=== PATIENT | female | born 1980 | race Caucasian/White ===

== ENCOUNTER 2016-11-05 07:34 | Inpatient (IN) | payer BC ==
[2016-11-05 09:05] LABS: Hematocrit 38 % (35-47); Mean Corpuscular HGB Conc 34 g/dl (31-36); Mean Corpuscular Hemoglobin 30 pg (27-31); Mean Corpuscular Volume 90 fL (80-97); Mean Platelet Volume 8 um3 (7.4-10.4); Red Blood Count 4.28 10^6/ul (4.0-5.4); Red Cell Distribution Width 13 % (10.5-15); White Blood Count 9.2 10^3/ul (3.5-10.8)
[2016-11-05] MEDS ORDERED: Oxytocin in LR* 20 UNITS/1,000 ML BAG IVPB SCH (12:00)
[2016-11-05] MEDS ORDERED: OBEPIDURAL* 250 ML ONE (17:06)
[2016-11-06] MEDS ORDERED: Glycerin ADULT SUPP PR PRN (02:47)
[2016-11-06] MEDS ORDERED: Acetaminophen TAB* 325 MG PO PRN (02:47)
[2016-11-06] MEDS ORDERED: Ammonia Inhalant* 1 EA AMP ONE (07:20)
[2016-11-06] MEDS: Sertraline* 50 MG TAB PO SCH (07:50)
[2016-11-06] MEDS: Docusate CAP* 100 MG PO SCH ×3 (07:50→20:30)
[2016-11-06] MEDS: Witch Hazel PAD* JAR TOPICAL PRN (07:51)
[2016-11-06] MEDS: Dibucaine 1% 28.35 GM TUBE PR PRN (07:51)
[2016-11-06] MEDS ORDERED: Simethicone TAB* 80 MG TAB.CHEW PO SCH (08:30)
[2016-11-06] MEDS: Ibuprofen TAB* 600 MG PO PRN ×2 (14:46→20:30)
[2016-11-06] MEDS ORDERED: RHO D Immune Globulin (HUMAN)* 300 MCG = 1,500 I.U. INJ IM ONE (18:42)
[2016-11-07] MEDS: Ibuprofen TAB* 600 MG PO PRN ×4 (03:56→22:47)
[2016-11-07 07:13] LABS: Hematocrit 23 % (35-47); Hemoglobin 7.8 g/dl (12.0-16.0); Mean Corpuscular HGB Conc 34 g/dl (31-36); Mean Corpuscular Hemoglobin 30 pg (27-31); Mean Corpuscular Volume 89 fL (80-97); Mean Platelet Volume 8 um3 (7.4-10.4); Red Blood Count 2.61 10^6/ul (4.0-5.4); Red Cell Distribution Width 13 % (10.5-15); White Blood Count 14.8 10^3/ul (3.5-10.8)
[2016-11-07] MEDS: Ferrous Gluconate TAB* 324 MG TAB PO SCH ×2 (08:55→20:54)
[2016-11-07] MEDS: Docusate CAP* 100 MG PO SCH ×3 (08:59→20:55)
[2016-11-07] MEDS: Sertraline* 50 MG TAB PO SCH (09:01)
[2016-11-07] MEDS: Witch Hazel PAD* JAR TOPICAL PRN (13:41)
[2016-11-07] MEDS: Dibucaine 1% 28.35 GM TUBE PR PRN (13:41)
--- NOTE | 2016-11-07 14:09 | PTEDU ---
Patient Name: MARIN HURTADO PROSPERMARIN HENLEY selected video: Never Ever Shake a Baby to view on 11/07/2016 at 2:07:58 PM from [id number]
[2016-11-08] MEDS: Ibuprofen TAB* 600 MG PO PRN ×2 (04:34→15:04)
[2016-11-08 07:50] VITALS: BP 130/82
[2016-11-08] MEDS: Ferrous Gluconate TAB* 324 MG TAB PO SCH (08:35)
[2016-11-08] MEDS: Docusate CAP* 100 MG PO SCH ×2 (08:38→15:04)
== END 2016-11-08 16:00 | disposition home or self-care (01) | DRG 560 ==
LOC: MCHOBOUT 07:34 → MCHOB 08:32
PROVIDERS: ADMIT Obstetrics & Gynecology; ATTEND Obstetrics & Gynecology
PROC: 10E0XZZ Delivery of Products of Conception, External Approach (ICD-10-PCS; principal; 2016-11-06)
PROC: 3E033VJ Introduction of Other Hormone into Peripheral Vein, Percutaneous Approach (ICD-10-PCS; 2016-11-06)
PROC: 10907ZC Drainage of Amniotic Fluid, Therapeutic from Products of Conception, Via Natural or Artificial Opening (ICD-10-PCS; 2016-11-06)
PROC: 0KQM0ZZ Repair Perineum Muscle, Open Approach (ICD-10-PCS; 2016-11-06)
DX: O40.3XX0 Polyhydramnios, third trimester, not applicable or unspecified (principal); D68.51 Activated protein C resistance; O99.12 Other diseases of the blood and blood-forming organs and certain disorders involving the immune mechanism complicating childbirth; O70.1 Second degree perineal laceration during delivery; O26.893 Other specified pregnancy related conditions, third trimester; J45.909 Unspecified asthma, uncomplicated; O90.81 Anemia of the puerperium; D64.9 Anemia, unspecified; Z67.91 Unspecified blood type, Rh negative; Z3A.37 37 weeks gestation of pregnancy; Z37.0 Single live birth
CPT/HCPCS: 36415; 85025; 85461; 86850; 86870; 86880; 86900; 86901; A9270-GY; J2790

== ENCOUNTER 2019-05-07 11:54 | Observation (INO) | payer BC, OTHER ==
[2019-05-07 13:17] LABS: INR 1.03 (0.82-1.09)
[2019-05-07 13:20] LABS: ABS Lymphocytes 1.7 10^3/ul (1.0-4.8); ABS Monocytes 0.4 10^3/ul (0-0.8); ABS Neutrophils 5.9 10^3/ul (1.5-7.7); Eosinophil % 0.6 %; Hematocrit 40 % (35-47); Hemoglobin 13.6 g/dL (12.0-16.0); Lymphocyte % 21.4 %; Mean Corpuscular HGB Conc 34 g/dL (31-36); Mean Corpuscular Hemoglobin 30 pg (27-31); Mean Corpuscular Volume 86 fL (80-97); Mean Platelet Volume 7.2 fL (7.4-10.4); Nucleated Red Blood Cells % 0.1; Platelet Count 218 10^3/uL (150-450); Red Blood Count 4.61 10^6 /uL (3.70-4.87); Red Cell Distribution Width 13 % (10-15); White Blood Count 8.2 10^3/uL (3.5-10.8)
[2019-05-07 13:29] LABS: Albumin/Globulin Ratio 1.1 (1-3); BUN/Creatinine Ratio 12.4 (8-20); C Reactive Protein 76.95 mg/L (<8.01); Calcium 8.8 mg/dL (8.6-10.3); EGFR Non-African American 70.2 (>60); Globulin 3.7 g/dL (2-4); Total Bilirubin 0.3 mg/dL (0.2-1.0); Total Protein 7.7 g/dL (6.4-8.9)
[2019-05-07] MEDS ORDERED: Iohexol 350* (CONTRAST) 500 ML MDV IV ONE (14:17)
[2019-05-07] MEDS ORDERED: NS 0.9% 1000 ML** 1,000 ML IV ONE (15:14)
--- NOTE | 2019-05-07 15:52 | ED ---
Lower Extremity - HPI Summary HPI Summary: Patient is a 39-year-old female presenting to the ED with left lower extremity edema - History of Current Complaint Chief Complaint: EDExtremityLower Stated Complaint: POSS DVT LT LEG PER PT Time Seen by Provider: 05/07/19 12:25 Pain Intensity: 4 - Allergies/Home Medications Allergies/Adverse Reactions: Allergies Allergy/AdvReac Type Severity Reaction Status Date / Time No Known Allergies Allergy Verified 05/07/19 12:02 PMH/Surg Hx/FS Hx/Imm Hx Endocrine/Hematology History: Denies: Hx Diabetes Cardiovascular History: Denies: Hx Hypertension Respiratory History: Reports: Hx Asthma - exercised induced History: Denies: Hx Renal Disease Psychiatric History: Reports: Hx Depression - takes zoloft Infectious Disease History: No Infectious Disease History: Denies: Traveled Outside the [place] in Last 30 Days - Social History Alcohol Use: None Substance Use Type: Reports: None Smoking Status (MU): Never Smoked Tobacco Physical Exam Vital Signs On Initial Exam: Initial Vitals Temp Pulse Resp BP Pulse Ox 98.1 F 121 19 150/83 98 05/07/19 12:00 05/07/19 12:00 05/07/19 12:00 05/07/19 12:00 05/07/19 12:00 Diagnostics - Vital Signs Vital Signs Temp Pulse Resp BP Pulse Ox 05/07/19 13:32 132/90 05/07/19 13:06 121/90 05/07/19 13:05 122/87 05/07/19 13:02 129/80 05/07/19 12:32 150/95 05/07/19 12:00 98.1 F 121 19 150/83 98 - Laboratory Lab Results: Lab Results 05/07/19 05/07/19 05/07/19 Range/Units 12:50 12:50 12:52 WBC 8.2 (3.5-10.8) 10^3/uL RBC 4.61 (3.70-4.87) 10^6 /uL Hgb 13.6 (12.0-16.0) g/dL Hct 40 (35-47) % MCV 86 (80-97) fL MCH 30 (27-31) pg MCHC 34 (31-36) g/dL RDW 13 (10-15) % Plt Count 218 (150-450) 10^3/uL MPV 7.2 L (7.4-10.4) fL Neut % (Auto) 72.9 % Lymph % (Auto) 21.4 % Mora % (Auto) 4.8 % Eos % (Auto) 0.6 % Baso % (Auto) 0.3 % Absolute Neuts (auto) 5.9 (1.5-7.7) 10^3/ul Absolute Lymphs (auto) 1.7 (1.0-4.8) 10^3/ul Absolute Monos (auto) 0.4 (0-0.8) 10^3/ul Absolute Eos (auto) 0.0 (0-0.6) 10^3/ul Absolute Basos (auto) 0.0 (0-0.2) 10^3/ul Absolute Nucleated RBC 0.0 10^3/ul Nucleated RBC % 0.1 INR (Anticoag Therapy) 1.03 (0.82-1.09) Sodium 133 L (135-145) mmol/L Potassium 4.0 (3.5-5.0) mmol/L Chloride 103 (101-111) mmol/L Carbon Dioxide 23 (22-32) mmol/L Anion Gap 7 (2-11) mmol/L BUN 11 (6-24) mg/dL Creatinine 0.89 (0.51-0.95) mg/dL Est GFR ( Amer) 85.0 (>60) Est GFR (Non-Af Amer) 70.2 (>60) BUN/Creatinine Ratio 12.4 (8-20) Glucose 168 H (70-100) mg/dL Calcium 8.8 (8.6-10.3) mg/dL Total Bilirubin 0.30 (0.2-1.0) mg/dL AST 14 (13-39) U/L ALT 8 (7-52) U/L Alkaline Phosphatase 60 (34-104) U/L C-Reactive Protein 76.95 H (<8.01) mg/L Total Protein 7.7 (6.4-8.9) g/dL Albumin 4.0 (3.2-5.2) g/dL Globulin 3.7 (2-4) g/dL Albumin/Globulin Ratio 1.1 (1-3) Result Diagrams: 05/07/19 12:50 05/07/19 12:50 Lab Statement: Any lab studies that have been ordered have been reviewed, and results considered in the medical decision making process. Discharge - Discharge Plan Referrals: Joie Taylor [Primary Care Provider] -
[2019-05-07] MEDS ORDERED: traMADol TAB* 50 MG PO ONE (15:56)
[2019-05-07] MEDS ORDERED: Ondansetron INJ* 2 MG/ML VIAL IV PRN (16:59)
[2019-05-07] MEDS ORDERED: Albuterol 2.5 MG/3 ML NEB.SOL* (0.083%) INH PRN (17:03)
[2019-05-07] MEDS ORDERED: Rivaroxaban TAB(*) 15 MG PO ONE (18:00)
[2019-05-07] MEDS: Acetaminophen TAB* 325 MG PO PRN (19:55)
[2019-05-07] MEDS ORDERED: Rivaroxaban TAB(*) 15 MG PO SCH (21:00)
[2019-05-07] MEDS: lamoTRIgine TAB(*) 25 MG PO SCH (21:43)
[2019-05-07] MEDS ORDERED: oxyCODONE/Acetamin 5/325 MG* TAB PO PRN (22:58)
--- NOTE | 2019-05-07 23:13 | HP ---
CC: GEE Park * ADMISSION HISTORY AND PHYSICAL: DATE OF ADMISSION: 05/07/19 PRIMARY CARE PROVIDER: GEE Park MY ATTENDING WHILE IN THE HOSPITAL: Dr. Naga Huang.* (DICTATED BY GABY REYNA) CHIEF COMPLAINT: Pain and swelling in left lower extremity x2 days. HISTORY OF PRESENT ILLNESS: Ms. Mary is a 39-year-old female with past medical history significant for bipolar disorder, migraines without aura, asthma , and polycystic ovarian syndrome, who presents to the emergency department after 2 days ago, she had sudden onset pain, swelling, and redness in her left lower extremity with associated cold sweats and nausea, which has been getting worse over the past 2 days. The patient has had 2 similar episodes in the past month. The first one was diagnosed as an ankle sprain, but had no obvious trauma related to it. That was associated with shortness of breath for which she went for no medical care. She then had another episode 2 weeks ago with pain in her leg that went down starting approximately nursing home down her thigh, went down the inside of her leg, and then back up the other side of her leg. None of these were associated with any numbness or tingling in her left lower extremity, no pallor, no bruising. The patient has had no recent trauma. No recent immobilization. No recent changes in her medications. The patient is on control pills and has been for 2 years. The patient's mother has had numerous blood clots and has factor V Leiden. The patient's sister has factor V Leiden, but has never had a blood clot from it. The patient has never been tested herself. The patient has no chest pain, no shortness of breath, no dizziness. The patient has no more fevers or chills. The patient denies any bleeding. The patient has never had an episode like this before in her life. The patient has had no other recent life changes. In the emergency department, the patient was found to have large occlusive DVTs of the left lower extremity and small segmental pulmonary emboli. Due to concern for DVT and PE, we were asked to evaluate the patient for admission to the hospital. PAST MEDICAL HISTORY: Bipolar disorder, migraines without aura, polycystic ovarian syndrome, and asthma. PAST SURGICAL HISTORY: None. MEDICATIONS: 1. Lamictal 150 mg p.o. b.i.d. 2. Abilify 5 mg p.o. daily. 3. control pills, Low Estrogen. 4. Spironolactone 25 mg p.o. daily. 5. Ventolin inhaler 1 puff inhalation q.4 hours as needed. ALLERGIES: No known drug allergies. FAMILY HISTORY: The patient's mother has factor V Leiden, blood clots, anorexia , osteoporosis, and arrhythmia. The patient's father is healthy. The patient' s sister has factor V Leiden. Never had blood clots, but does have asthma and anorexia. The patient has a brother with asthma and a sister, who is generally unwell, but does not seek medical care. SOCIAL HISTORY: The patient does not smoke. The patient drinks 1 drink approximately 5 times a week. The patient smokes marijuana 2 puffs nightly. The patient works as a social media executive. Has a long-term partner and 1 biologic child. REVIEW OF SYSTEMS: A 14-point review of systems was reviewed and is negative except as above in the HPI. PHYSICAL EXAMINATION GENERAL: The patient is a 39-year-old female, who appears her stated age and sitting comfortably in bed, in no acute distress. VITAL SIGNS: At time of evaluation, temperature 98.1, pulse rate 84, respiratory rate 18, oxygen saturation 100% on room air, blood pressure 129/79. HEENT: Head: Normocephalic, atraumatic. Sclerae are anicteric. No conjunctival injection. Nasal mucosa moist. Oral mucosa moist. No pharyngeal erythema, discharge, or exudate. NECK: Supple, nontender. No lymphadenopathy. No carotid bruit auscultated. No JVD. RESPIRATORY: Clear to auscultation bilaterally. No wheezes, rales, or rhonchi. Good air exchange bilaterally. CARDIAC: Regular rate and rhythm. No clicks, murmurs, gallops, or rubs. Pulses 2+ in the dorsalis pedis, posterior tibial, and radial areas. 2+ lower extremity edema in the entire left lower extremity, much greater than the right. No tenderness with palpation of the calf, tenderness with palpation of the thigh. ABDOMEN: Soft, nontender, and nondistended. Bowel sounds present in all 4 quadrants. No hepatosplenomegaly. No abdominal bruits auscultated. No hepatojugular reflux. GENITOURINARY: No suprapubic or CVA tenderness. NEURO: Cranial nerves II through XII intact. No focal deficits. Alert and oriented x3. PSYCHIATRIC: Pleasant and cooperative. SKIN: Clean, dry, intact. No rash. DIAGNOSTIC STUDIES/LAB DATA: White blood cell count 5.2, hemoglobin 13.6, platelet count 218. INR 1.03. Sodium 133, potassium 4.0, chloride 103, carbon dioxide 23, anion gap 7, BUN 11, creatinine 0.89, glucose 168, calcium 8.8. Bilirubin 0.3, AST 14, ALT 8, alkaline phosphatase 60. CRP is 76.95. Protein 7.7, albumin 4.0, globulin 3.7. Venous Doppler study read as occlusive thrombus in the left lower femoropopliteal segments extending at least to the left external iliac vein. Recommending contrast- enhanced CT of the abdomen and pelvis to determine if the patient has an abdominal and pelvic venous compression syndrome contributing to her presentation. Chest thorax CTA read as positive nonocclusive pulmonary emboli in the lower segmental branches. ASSESSMENT AND PLAN: Impression: Ms. Mary is a 39-year-old female with a past medical history significant for bipolar disorder, migraines, polycystic ovarian syndrome, and asthma with a strong family history of factor V Leiden, who presents to the emergency department with left lower extremity swelling x2 days with two other possible episodes of pain and swelling involving the left leg from the past month, who is found to have large left lower extremity clot and small deep venous thrombosis. The patient admitted to the hospital for further evaluation for causes and risk stratification and initiation of anticoagulation therapy. 1. Left lower extremity deep venous thrombosis, pulmonary embolism. The patient has 2 unprovoked pulmonary embolism. The patient's only risk factor pending factor V Leiden testing is estrogen control pills, which she has agreed to stop at this point. The patient has no recent immobilization, no recent changes in medications, and no other medications contributing to blood clot. The patient has migraines without aura. The patient does not smoke. The patient will be evaluated for pelvic congestion syndrome such as May- Thurner syndrome with a CT of the abdomen and pelvis with contrast per recommendation of Radiology. The patient also had an echocardiogram to assess for left ventricle strain or chronic thromboembolic pulmonary hypertension. The patient will be started on Xarelto at anticoagulation dose, which will be continued. She will likely continue indefinitely. 2. Bipolar disorder. Continue Lamictal and Abilify. 3. Asthma. P.r.n. nebulizer. 4. DVT prophylaxis. Xarelto. 5. FEN. Regular unrestricted diet. No fluids are indicated. 6. History of polycystic ovarian syndrome. Continue spironolactone. TIME SPENT: Approximately 60 minutes was spent on this admission of this patient, 30 of which was spent [id number] with the patient obtaining history and physical and discussing treatment plan. This plan was discussed with my attending, Dr. Naga Huang; he is in agreement. GABY REYNA [id number]/CPS #: [id number] MTDD
[2019-05-08] MEDS: Acetaminophen TAB* 325 MG PO PRN (03:23)
[2019-05-08] MEDS ORDERED: Rivaroxaban TAB(*) 15 MG PO SCH (06:00)
[2019-05-08 07:27] LABS: ABS Eosinophils 0.1 10^3/ul (0-0.6); ABS Lymphocytes 2.8 10^3/ul (1.0-4.8); ABS Monocytes 0.5 10^3/ul (0-0.8); ABS Neutrophils 3.8 10^3/ul (1.5-7.7); Eosinophil % 1.8 %; Hematocrit 36 % (35-47); Hemoglobin 12.5 g/dL (12.0-16.0); Lymphocyte % 38.7 %; Mean Corpuscular HGB Conc 35 g/dL (31-36); Mean Corpuscular Hemoglobin 30 pg (27-31); Mean Corpuscular Volume 86 fL (80-97); Mean Platelet Volume 6.9 fL (7.4-10.4); Platelet Count 193 10^3/uL (150-450); Red Blood Count 4.19 10^6 /uL (3.70-4.87); Red Cell Distribution Width 13 % (10-15); White Blood Count 7.3 10^3/uL (3.5-10.8)
[2019-05-08] MEDS ORDERED: Iohexol 300* (CONTRAST) 10 ML SDV IV SCH (07:33)
[2019-05-08 07:46] LABS: Calcium 8.3 mg/dL (8.6-10.3); EGFR African American 88.4 (>60); EGFR Non-African American 73.1 (>60); Magnesium 2.1 mg/dL (1.9-2.7); Potassium 3.4 mmol/L (3.5-5.0)
[2019-05-08] MEDS ORDERED: ARIPiprazole TAB* 5 MG PO SCH (09:00)
[2019-05-08] MEDS ORDERED: Spironolactone TAB* 25 MG PO SCH (09:00)
[2019-05-08] MEDS: lamoTRIgine TAB(*) 25 MG PO SCH (09:10)
[2019-05-08] MEDS ORDERED: Potassium Chlor TAB* 20 MEQ TAB.ER PO SCH (13:00)
[2019-05-08] MEDS: Potassium Chloride* LIQUID 20 MEQ/15 ML UDC PO SCH ×2 (13:25→14:53)
--- NOTE | 2019-05-08 14:36 | ECHO ---
*[facility]* [place] [address] Fax #: [phone] Transthoracic Echocardiogram Patient: Fatoumata Mary : 1980 Study Date: 05/08/2019 Age: 39 Gender: F HR: 78 bpm Height: 63 in /160 cm BSA: 1.69 m^2 Weight: 144.7 lb /65.8 kg BMI: 25.7 kg/m^2 *Program Professional: * Francheska Claros RDCS RN *Referring Physician: * Agustin Miramontes *Reading Physician: * Vishal Moy MD Indications: Pulmonary embolism. History: Asthma. Family history of factor V Leiden disorder. Conclusions Summary: - Left ventricle: Systolic function is normal. The estimated ejection fraction is 55-60%. - Right ventricle: Systolic function is low normal. - Mitral valve: There is trace regurgitation. - Tricuspid valve: There is trace regurgitation. Study data: Transthoracic echocardiogram. Procedure: Transthoracic echocardiography was performed. Image quality was fair. Complete 2D, spectral Doppler, and color flow Doppler. Location: Bedside. Patient status: Observation. Patient room number: 445-02. No prior study is available for comparison. Rhythm: Normal sinus rhythm. Findings Left ventricle: The cavity size is normal. Wall thickness is normal. Systolic function is normal. The estimated ejection fraction is 55-60%. Wall motion is normal; there are no regional wall motion abnormalities. Left ventricular diastolic function parameters are normal. Right ventricle: The cavity size is normal. Systolic function is low normal. Left atrium: The atrium is normal in size. Right atrium: The atrium is normal in size. Mitral valve: The leaflets are mildly thickened. There is no evidence of stenosis. There is trace regurgitation. Aortic valve: The leaflets are mildly thickened. There is no evidence of stenosis. There is no regurgitation. Tricuspid valve: The valve is structurally normal. There is no evidence of stenosis. There is trace regurgitation. Pulmonic valve: The valve is structurally normal. There is no evidence of stenosis. There is trace regurgitation. Aorta: Aortic root: The aortic root is not dilated. Ascending aorta: The ascending aorta is not dilated. Aortic arch: The aortic arch is not dilated. Pericardium: There is no pericardial effusion. Pulmonary arteries: The main pulmonary artery is normal-sized. Systolic pressure can not be accurately estimated. Systemic veins: Inferior vena cava: The vessel is normal in size. There is (>= 50%) respiratory change in the IVC dimension. Measurements Left ventricle Value Ref Aortic valve Value Ref PETEY, LAX 4.4 cm 3.8 - 5.2 Mustapha diam, ED 1.9 cm ---- ESD, LAX 3.1 cm 2.2 - 3.5 [place] diam/bsa, ED 1.1 cm/m^2 ---- FS, LAX 29 % 27 - 45 Peak v, S 1.43 m/sec ---- PW, ED 0.8 cm 0.6 - 0.9 VTI, S 27.2 cm ---- IVS/PW, ED 0.93 Mean grad, S 5.0 mm Hg ---- E', lat mustapha, TDI 14.7 cm/sec >=10.0 Peak grad, S 8.0 mm Hg - --- E/e', lat mustapha, 5 LVOT/AV, VTI ratio 0.69 ---- TDI E', med mustapha, TDI 13.2 cm/sec >=7.0 Mitral valve Value R ef E/e', med mustapha, 6 Peak E 0.8 m/sec ---- TDI Peak A 0.7 m/sec ---- E', avg, TDI 14.0 cm/sec Decel time 236 ms ---- E/e', avg, TDI 6 <=14 Peak grad, D 2.6 mm Hg - --- Peak E/A ratio 1.1 ---- LVOT Value Ref Peak danyell, S 1.06 m/sec Pulmonic valve Value Ref VTI, S 18.7 cm Peak v, S 0.86 m/sec ---- Mean grad, S 2 mm Hg Peak grad, S 3.0 mm Hg ---- Ventricular septum Value Ref Aortic root Value Ref IVS, ED 0.8 cm 0.6 - 0.9 Root diam 2.4 cm <3.9 Right ventricle Value Ref Ascending aorta Value Ref PETEY, LAX 2.3 cm AAo AP diam, S 2.1 cm ---- PETEY minor ax, A4C 3.5 cm 1.9 - 3.5 mid Aortic arch Value Ref Arch diam 2.0 cm ---- Left atrium Value Ref AP dim, ES (L) 2.40 cm 2.70 - Decending aorta Value Ref 3.80 Eligio peak danyell 1.22 m/sec ---- ML dim, A4C 2.8 cm SI dim, A4C 4.2 cm Inferior vena cava Value Ref Vol/bsa, ES, 1-p (L) 10 ml/m^2 11 - 40 Diam 1.3 cm ---- A4C Vol/bsa, ES, A/L (L) 12 ml/m^2 16 - 34 Right atrium Value Ref ML dim, ES, A4C 3.4 cm 2.6 - 4.4 SI dim, ES, A4C 4.1 cm 3.4 - 5.3 Estimated RAP 3 mm Hg Legend: (L) and (H) salbador values outside specified reference range. Prepared and electronically signed by Vishal Moy MD 05/08/2019 14:36
[2019-05-08 19:57] VITALS: BP 115/73
--- NOTE | 2019-05-08 21:50 | DS ---
CC: GEE Park * DISCHARGE SUMMARY: DATE OF ADMISSION: 05/07/19 DATE OF DISCHARGE: 05/08/19 PRIMARY CARE PROVIDER: GEE Park ATTENDING PHYSICIAN: Dr. Ruthie Katz * (dictated by GABY Neville). PRIMARY DIAGNOSES: 1. Left lower extremity deep venous thrombosis. 2. Pulmonary emboli. SECONDARY DIAGNOSES: 1. Polycystic ovarian syndrome. 2. Asthma. 3. Bipolar disorder. 4. Migraines without aura. STUDIES WHILE IN THE HOSPITAL: 1. Left lower extremity venous duplex. Impression: There is occlusive thrombus on the left lower extremity femoropopliteal veins extending at least to the left external iliac vein. I recommended contrast-enhanced CT of the abdomen and pelvis to determine if the patient has an abdominopelvic venous compression syndrome contributing to her current presentation. 2. CTA of the chest. Impression: Positive nonocclusive pulmonary emboli in the lower lobe segmental branches as described above. 3. CT abdomen and pelvis. Impression: Asymmetric enlargement of the left common femoral vein relative to the contralateral right side consistent with the patient's extensive recently diagnosed left lower extremity DVT. There is questionable pathologic compression of the left common iliac vein beneath the overlying common iliac arteries (i.e. May-Thurner anatomy). If the patient does not resolve her left leg DVT and/or has left lower extremity swelling after anticoagulation therapy, further vascular imaging may be appropriate. 4. Transthoracic echocardiogram. Impression: Left ventricle: Systolic function is normal. Estimated EF is 55% to 60%. Right ventricle: Systolic function is low normal. Mitral valve: There is trace regurgitation. Tricuspid valve: There is trace regurgitation. DISCHARGE MEDICATIONS: Home Medications: 1. Acetaminophen 650 mg p.o. q.4 hours p.r.n. 2. Albuterol HFA inhaler 2 puff inhalation p.r.n. 3. Aripiprazole 5 mg p.o. daily. 4. Cetirizine 10 mg p.o. daily. 5. Lamotrigine 150 mg p.o. daily. 6. Mometasone 220 mg MDI one puff inhalation daily. 7. Spironolactone 25 mg p.o. daily. 8. Triamcinolone 1 puff nasal daily p.r.n. congestions. [place] Medications: Rivaroxaban 15 mg p.o. q.12 hours x21 days, starting , then 20 mg p.o. daily. HISTORY OF PRESENT ILLNESS/HOSPITAL COURSE: Ms. Mary is a 39-year-old female with a past medical history of PCOS and asthma, who presented to the ER on 05/07/19, with complaints of 2 days of pain, swelling, and redness in the left lower extremity. Please see the history and physical dictated by GABY Marino, on 05/07/19, for full and complete details, but in short, the patient complained of left lower extremity pain, swelling, redness, with associated shortness of breath, x2 episodes over the last 1 month. The patient denies injury to the area. She denies recent travel. She is on control pills. She has a family history of factor V Leiden, but has never been tested herself. In the ER, the patient was found to have a large occlusive DVT of the left lower extremity as well as small segmental pulmonary embolisms. She was admitted to the hospital. At the recommendation of Radiology, a CT of the abdomen and pelvis with contrast was ordered and resulted that this will be followed with her primary care provider. Factor V Leiden blood work was also ordered and has not returned at the time of this dictation. This should be followed up with the patient's primary care provider. On the night of admission , the patient was started on Xarelto 15 mg p.o. b.i.d. She will continue this for 21 days and then switch to 20 mg p.o. daily. Transthoracic echocardiogram has been ordered to assess for chronic thromboembolic pulmonary hypertension as the patient reports 2 recent similar episodes to this in the last 1 month. Imaging is as above with noted left lower extremity DVT, nonocclusive pulmonary emboli, and questionable pathologic compression of the left common iliac vein with the appearance of May-Thurner anatomy. On the day of discharge, the patient is comfortable with her discharge diagnosis. She will follow up with her primary care provider within a week for further instructions on medication, treatment, and testing. She denies chest pain or shortness of breath. She notes that she has some left lower extremity edema. She denies erythema, pallor or other color changes. She notes that she has some abdominal cramping, but attributes this to possible premenstrual cramping. She denies nausea, vomiting, diarrhea or constipation. She denies dizziness or lightheadedness. She is ambulating without difficulty, although she does have some pain at the left leg. Ms. Mary is stable for discharge to home. Vital signs are temperature 97.8 temporal, heart rate 82, respiratory rate 16, oxygen saturation 99% on room air, blood pressure 121/73. REVIEW OF SYSTEMS: A 10-point review of systems was performed and all the pertinent positives and negatives are in the HPI. All other systems are negative. PHYSICAL EXAMINATION: General: Ms. Mary is a well-developed, well- nourished, overweight, middle-aged white woman, who is sitting up in a chair. She appears to be in no acute distress. She speaks in full sentences. She is pleasant and cooperative. HEENT: Normocephalic, atraumatic. PERRL. Nonicteric sclerae. Hearing grossly intact. Oral mucous membranes are moist. There are no lesions. Cardiovascular: Regular rate and rhythm with S1, S2, present without murmurs, rubs, clicks or gallops. There is no JVD. Radial and pedal pulses are palpable. There is left lower extremity edema that is nonpitting. There is no color change associated with the edema. Pulmonary: Symmetrical chest expansion without use of accessory muscles. Lungs: Clear to auscultation bilaterally without rhonchi, wheezes or rubs. There is no clubbing or cyanosis. Abdomen: Bowel sounds noted in all quadrants without tenderness to palpation. Extremities: Skin is warm and smooth bilaterally. The left lower extremity is edematous without erythema, pallor or color change. Radial and pedal pulses are palpable. Neuro: The patient is awake. She is alert and oriented with cranial nerves grossly intact. She is able to move all of her extremities. She has a somewhat antalgic gait due to left lower extremity pain and swelling. DISCHARGE PLAN: Ms. Mary will be discharged to home. CONDITION: Good. ACTIVITY: As tolerated. DIET: Resume home diet. MEDICATIONS: New home medication: Rivaroxaban 15 mg p.o. q.12 hours x21 days, then 20 mg p.o. daily. EDUCATION: Follow up with primary care provider in next 4 to 7 days, at which time, you should discuss: 1. Refill for new home medications Xarelto and length of need. 2. CT results and further testing for possible pelvic congestion syndrome. 3. Pending laboratory results of factor V Leiden. 4. Return to the ER or nearest hospital if you experience any worsening of symptoms, shortness of breath, chest discomfort, dizziness, lightheadedness, loss of consciousness, high fevers, chills or night sweats. This is a summarized report of a complex medical history and hospital stay. For further details, please see the entire medical record. TIME SPENT: Approximately 40 minutes was spent on this discharge, greater than half that time was spent [id number] with the patient discussing discharge plans and instructions. GABY FUNG [id number]/CPS #: [id number] MTDD
== END 2019-05-08 16:30 | disposition home or self-care (01) ==
LOC: ED 11:54 → MEDTELE 17:01
PROVIDERS: ADMIT Internal Medicine; ATTEND Internal Medicine
DX: I82.402 Acute embolism and thrombosis of unspecified deep veins of left lower extremity (principal); I26.99 Other pulmonary embolism without acute cor pulmonale; E28.2 Polycystic ovarian syndrome; J45.909 Unspecified asthma, uncomplicated; F31.9 Bipolar disorder, unspecified; G43.009 Migraine without aura, not intractable, without status migrainosus; Z79.899 Other long term (current) drug therapy; Z79.3 Long term (current) use of hormonal contraceptives
CPT/HCPCS: 36415; 71275; 74177; 80048; 80053; 81241; 83735; 85025; 85610; 86140; 93306; 96360; 96361; 99284; A9270-GY; G0378; Q9967

== ENCOUNTER 2019-07-25 09:25 | Observation (INO) | payer OTHER ==
--- NOTE | 2019-07-25 10:24 | ED ---
Syncope/Near Syncope - HPI Summary HPI Summary: Pt. is a 39 y.o female who presents to the ER for evaluation after syncope and head injury that occurred on Thursday, 3 days ago. Pt. states on Thursday she had a few glasses of wine which was not uncommon for her. She went to bed and woke up to go to the restroom and when she was in the kitchen she became dizzy, lightheaded, nauseous and then woke up on the floor. Pt. states she stroke the back of head on the floor. Pt. states she got up and passed out again and woke up to her dog licking her face. Pt. was [place] [facility] [place] being dx with DVT and PE. She was found to have Factor V Leiden. Currently on Xarelto. Pt. notes ongoing headache and bump to back of her head. Pt. also notes ongoing dizziness and lightheadedness. Denies recent illness, CP, SOB, abd. pain, V/D, urinary sxs. Sxs are moderate in severity. No current modifying factors. - History Of Current Complaint Chief Complaint: EDHeadInjury Time Seen by Provider: 07/25/19 09:45 Hx Obtained From: Patient - Allergies/Home Medications Allergies/Adverse Reactions: Allergies Allergy/AdvReac Type Severity Reaction Status Date / Time No Known Allergies Allergy Verified 07/25/19 09:42 Home Medications: Home Medications Rivaroxaban TAB(*) [Xarelto 15 mg(*)] 20 mg PO DAILY 07/25/19 [History Confirmed 07/25/19] lamoTRIgine [Lamotrigine] 150 mg PO BID 07/25/19 [History Confirmed 07/25/19] PMH/Surg Hx/FS Hx/Imm Hx Previously Healthy: Yes Endocrine/Hematology History: Denies: Hx Anticoagulant Therapy, Hx Diabetes Cardiovascular History: Denies: Hx Hypertension Respiratory History: Reports: Hx Asthma - exercised induced History: Denies: Hx Renal Disease Sensory History: Reports: Hx Contacts or Glasses Denies: Hx Deafness, Hx Hearing Aid Opthamlomology History: Reports: Hx Contacts or Glasses Psychiatric History: Reports: Hx Depression - takes zoloft, Hx Post Traumatic Stress Disorder, Hx Bipolar Disorder Infectious Disease History: No Infectious Disease History: Denies: Traveled Outside the [place] in Last 30 Days - Family History Known Family History: Positive: Non-Contributory - Social History Occupation: Employed Full-time Lives: With Family Alcohol Use: Occasionally Hx Substance Use: No Substance Use Type: Reports: Marijuana Substance Use Comment - Amount & Last Used: Medical Marijuana Hx Tobacco Use: No Smoking Status (MU): Never Smoked Tobacco Review of Systems Constitutional: Negative Negative: Fever Eyes: Negative ENT: Negative Cardiovascular: Negative Respiratory: Negative Gastrointestinal: Negative Genitourinary: Negative Skin: Negative Positive: Headache, Syncope All Other Systems Reviewed And Are Negative: Yes Physical Exam Triage Information Reviewed: Yes Vital Signs On Initial Exam: Initial Vitals Temp Pulse Resp BP Pulse Ox 98.9 F 85 16 130/91 99 07/25/19 09:36 07/25/19 09:36 07/25/19 09:36 07/25/19 09:36 07/25/19 09:36 Vital Signs Reviewed: Yes Appearance: Positive: Well-Appearing - Pt. sitting up in bed in NAD. Skin: Positive: Warm, Dry Head/Face: Positive: Normal Head/Face Inspection Eyes: Positive: Normal, EOMI, SABRINA ENT: Positive: Pharynx normal, TMs normal Neck: Positive: Supple, Other: - Midline cervical tenderness. Respiratory/Lung Sounds: Positive: Clear to Auscultation, Breath Sounds Present Cardiovascular: Positive: Normal, RRR Abdomen Description: Positive: Nontender, Soft Neurological: Positive: Normal, CN Intact II-III Psychiatric: Positive: Affect/Mood Appropriate Procedures - Sedation Patient Received Moderate/Deep Sedation with Procedure: No Diagnostics - Vital Signs Vital Signs Temp Pulse Resp BP Pulse Ox 07/25/19 10:22 100 07/25/19 10:09 88 122/89 07/25/19 10:00 87 20 99 07/25/19 09:53 89 20 99 07/25/19 09:51 102 16 122/89 97 07/25/19 09:50 84 15 128/79 98 07/25/19 09:36 98.9 F 85 16 130/91 99 - Laboratory Result Diagrams: 07/25/19 10:31 07/27/19 07:25 Lab Statement: Any lab studies that have been ordered have been reviewed, and results considered in the medical decision making process. Course/Dx Course Of Treatment: Pt. presenting for eval after syncope and ongoing h/a. Afebrile with stable VS. ECG done at 1031 shows a sinus rhythm of 79bpm, normal aixs, no STEMI. Labs are unremarkable. CT scans negative for acute findings per radiology. Pt. with ongoing dizziness. Case discussed with Dr. Flowers who recommends admission for further evaluation of syncope given current DVT and PEs. Case discussed with Dr. Huang who accepts pt. for admission. - Diagnoses Differential Diagnosis/HQI/PQRI: Positive: Ectopic , Metabolic Reaction , Medication Reaction, Pulmonary Embolism, Seizure Provider Diagnoses: Syncope Discharge ED - Sign-Out/Discharge Documenting (check all that apply): Patient Departure All imaging exams completed and their final reports reviewed: No - Discharge Plan Condition: Improved Disposition: ADMITTED TO [facility] - Billing Disposition and Condition Condition: IMPROVED Disposition: Admitted to [facility] - Attestation Statements Provider Attestation: the patient was seen by the midlevel provider, it was determined by them that it was not necessary for me to see the patient, I was available for consult during the patient's visit in the ED. I did not establish and patient-physician relationship. The chart however has been reviewed and I am signing in an administrative capacity.
[2019-07-25 10:32] LABS: Urine Appearance Clear; Urine Bilirubin Negative (Negative); Urine Blood Negative (Negative); Urine Color Straw; Urine Glucose Negative (Negative); Urine Ketones Negative (Negative); Urine Nitrite Negative (Negative); Urine Protein Negative (Negative); Urine Specific Gravity 1.003 (1.010-1.030); Urine Urobilinogen Negative (Negative)
[2019-07-25 10:40] LABS: ABS Lymphocytes 1.2 10^3/ul (1.0-4.8); ABS Monocytes 0.3 10^3/ul (0-0.8); ABS Neutrophils 3.1 10^3/ul (1.5-7.7); Eosinophil % 0.5 %; Hematocrit 40 % (35-47); Hemoglobin 13.5 g/dL (12.0-16.0); Lymphocyte % 26.2 %; Mean Corpuscular HGB Conc 34 g/dL (31-36); Mean Corpuscular Hemoglobin 30 pg (27-31); Mean Corpuscular Volume 87 fL (80-97); Mean Platelet Volume 6.6 fL (7.4-10.4); Nucleated Red Blood Cells % 0.1; Platelet Count 261 10^3/uL (150-450); Red Blood Count 4.56 10^6 /uL (3.70-4.87); Red Cell Distribution Width 13 % (10-15); White Blood Count 4.7 10^3/uL (3.5-10.8)
[2019-07-25 10:51] LABS: INR 1.16 (0.82-1.09)
[2019-07-25 10:58] LABS: ALT 10 U/L (7-52); AST 14 U/L (13-39); Albumin 3.9 g/dL (3.2-5.2); Albumin/Globulin Ratio 1.4 (1-3); Alkaline Phosphatase 49 U/L (34-104); Anion Gap 5 mmol/L (2-11); BUN/Creatinine Ratio 11.4 (8-20); Blood Urea Nitrogen 10 mg/dL (6-24); CO2 Carbon Dioxide 28 mmol/L (22-32); Calcium 9.1 mg/dL (8.6-10.3); Chloride 104 mmol/L (101-111); EGFR African American 86.1 (>60); EGFR Non-African American 71.2 (>60); Globulin 2.7 g/dL (2-4); Glucose 84 mg/dL (70-100); Magnesium 1.8 mg/dL (1.9-2.7); Potassium 3.9 mmol/L (3.5-5.0); Sodium 137 mmol/L (135-145); Total Protein 6.6 g/dL (6.4-8.9)
[2019-07-25 11:06] LABS: HCG Pregnancy < 0.60 mIU/mL
[2019-07-25 11:52] LABS: TSH (Thyroid Stimulating Horm) 1.54 mcIU/mL (0.34-5.60)
[2019-07-25] MEDS ORDERED: Acetaminophen TAB* 325 MG PO ONE (11:52)
--- NOTE | 2019-07-25 12:38 | ADMNOTE ---
Subjective Date of Service: 07/25/19 Interval History: ADMISSION HISTORY AND PHYSICAL EXAM: Allergies Allergy/AdvReac Type Severity Reaction Status Date / Time No Known Allergies Allergy Verified 07/25/19 09:42 Home Medications Medication Instructions Recorded Confirmed Type ARIPiprazole TAB* [Abilify TAB*] 5 mg PO DAILY 05/07/19 07/25/19 History lamoTRIgine [Lamotrigine] 150 mg PO DAILY 05/07/19 07/25/19 History Rivaroxaban TAB(*) [Xarelto 15 20 mg PO DAILY 07/25/19 07/25/19 History mg(*)] HPI: The patient was in her usual state of health until 07/22/19 about 11 PM she awoke to get some water and felt sever nausea, dizzines, passed out and hit her posterior head. She crawled to where her baby was to comfort the baby, then crawled back to her bed. She passed out again and awoke in the morning in her bed, no more nausea. This was similar to when she had a PE in 04/29. No chest pain, SOB, palpitations. Her L leg is still a little swollen after her DVT in , but has improved gradually since then Family History: Findings - Factor V Leiden Social History: Findings - No tobacco use. Occ 1 alcoholic drink. 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 Female partner Ingrid Bennett is her SDM. Past Medical History: Findings - PE/DVT 04/29, factor V Leiden heterozygote. Bipolar, mild migraines, asthma, PCO. 1 child Review of Systems - Measurements Intake and Output: Intake and Output Last 24 Hours 07/23/19 07/24/19 07/25/19 07/26/19 06:59 06:59 06:59 06:59 Weight 155 lb - Review of Systems Constitutional Symptoms: Negative: Weight Gain, Weight Loss, Weakness, Fatigue, Fever, Night Sweats, Unexplained Falls, Other Dermatology: Negative: Normal, Rash, Skin Lesions, Cancer, Skin Lumps, Other HEENT: Positive: Normal Eyes: Positive: Normal Thyroid: Positive: Normal Pulmonary: Positive: Normal Cardiology: Positive: Syncope Gastroenterology: Positive: Nausea Genital - Urinary: Positive: Normal Genitourinay - Female: Positive: Menses Normal Musculoskeletal: Negative: Joint Pain, Joint Stiffness, Arthritis, Osteoporosis, Low Back Pain , Sciatica, Joint Deformities, Kyphoscoliosis, Other Endocrinology: Positive: Normal Neurology: Positive: Headache, Migraines Psychiatry: Positive: Other - bipolar disorder Allergic/Immunologic: Negative: Hx Anaphylaxis, Hx Angioedema, Hx Environmental, Hx Seasonal, Asthma, Hx HIV, Immunocompromise, Swollen Glands LymphNodes, Other Objective Vital Signs - 8 hr 07/25/19 07/25/19 07/25/19 09:36 09:50 09:51 Temperature 98.9 F Pulse Rate 85 84 102 Respiratory 16 15 16 Rate Blood Pressure 130/91 128/79 122/89 (mmHg) O2 Sat by Pulse 99 98 97 Oximetry 07/25/19 07/25/19 07/25/19 09:53 10:00 10:09 Temperature Pulse Rate 89 87 88 Respiratory 20 20 Rate Blood Pressure 122/89 (mmHg) O2 Sat by Pulse 99 99 Oximetry 07/25/19 07/25/19 07/25/19 10:20 10:22 10:36 Temperature Pulse Rate 82 86 Respiratory 20 17 Rate Blood Pressure 128/82 126/81 (mmHg) O2 Sat by Pulse 99 100 100 Oximetry 07/25/19 07/25/19 07/25/19 11:19 11:34 11:50 Temperature Pulse Rate 81 81 83 Respiratory Rate Blood Pressure 149/76 130/85 (mmHg) O2 Sat by Pulse 100 100 99 Oximetry Oxygen Devices in Use Now: None Appearance: Alert, supine on ED stretcher. In good spirits. Looks comfortable. Eyes: No Scleral Icterus Ears/Nose/Mouth/Throat: Clear Oropharnyx, Mucous Membranes Moist Neck: NL Appearance and Movements; NL JVP, No Thyroid Enlargement, Masses Respiratory: Symmetrical Chest Expansion and Respiratory Effort, Clear to Auscultation, Clear to Percussion Cardiovascular: NL Sounds; No Murmurs; No JVD, RRR, No Edema, - Abdominal: NL Sounds; No Tenderness; No Distention, No Hepatosplenomegaly, - Extremities: - - L leg sl larger than R, no palpable edema, not tender Skin: No Rash or Ulcers, No Nodules or Sclerosis, - Neurological: Alert and Oriented x 3, NL Sensation Result Diagrams: 07/25/19 10:31 07/25/19 10:30 Assess/Plan/Problems-Billing Assessment: - Patient Problems (1) Syncope Current Visit: Yes Status: Acute Code(s): R55 - SYNCOPE AND COLLAPSE SNOMED Code(s): 696407949 Comment: Could be vasovagal but no reason apparent for the nausea. ? arrhythmia was primary and nausea secondary. Note nl orthostatic signs. Tele. Had echo 04/29. Pt heterozygous for factor V Leiden. Absence of tachypnea, tachycardia, hypoxia and reliable hx of compliance with rivaroxaban weigh heavily against PE, also no sx's x 2 days. Tele overnight. (2) Bipolar disease, chronic Current Visit: Yes Status: Acute Code(s): F31.9 - BIPOLAR DISORDER, UNSPECIFIED SNOMED Code(s): 74493931 Comment: Continue lamotrigine, aripriprazole. (3) Migraine Current Visit: Yes Status: Acute Code(s): G43.909 - MIGRAINE, UNSP, NOT INTRACTABLE, WITHOUT STATUS MIGRAINOSUS SNOMED Code(s): 01248660 Comment: Patient only take APAP for her migraines. (4) Asthma Current Visit: Yes Status: Acute Code(s): J45.909 - UNSPECIFIED ASTHMA, UNCOMPLICATED SNOMED Code(s): 820167269 Comment: mild, does not use MDI's often.
[2019-07-25] MEDS: Acetaminophen TAB* 325 MG PO PRN ×2 (15:53→20:28)
[2019-07-25] MEDS: ARIPiprazole TAB* 5 MG PO SCH (20:46)
[2019-07-25] MEDS: lamoTRIgine TAB(*) 100 MG PO SCH (20:46)
[2019-07-25] MEDS: Rivaroxaban TAB(*) 20 MG TAB PO SCH (20:47)
[2019-07-26] MEDS: Acetaminophen TAB* 325 MG PO PRN ×3 (01:59→21:22)
[2019-07-26] MEDS ORDERED: Magnesium Sulfate 2 GM IV* 2 GM/50 ML BAG IVPB ONE (08:23)
[2019-07-26] MEDS ORDERED: Potassium Chlor TAB* 20 MEQ TAB.ER PO ONE (09:18)
[2019-07-26] MEDS: lamoTRIgine TAB(*) 100 MG PO SCH ×2 (09:41→20:47)
[2019-07-26] MEDS ORDERED: Iohexol 350* (CONTRAST) 500 ML MDV IV ONE ×2 (12:12→14:41)
--- NOTE | 2019-07-26 14:31 | PN ---
Subjective Date of Service: 07/26/19 Interval History: HD 2 on 07/26 39 y/o F with h/o PE/DVT(on xarelto), Factor V leiden(heterozygous), Bipolar disorder, Migraine presented with syncope associated with nausea, lightheadedness and whoozy feeling. DD-vasovagal, recurrent PE, orthostatic No acute events VS- tachycardic, orthostatic BP normal Feels whoozy No complaint at present Objective Active Medications: Acetaminophen (Tylenol Tab*) 650 mg PO Q4H PRN PRN Reason: PAIN Last Admin: 07/26/19 09:41 Dose: 650 mg Aripiprazole (Abilify Tab*) 5 mg PO 2100 [facility] Last Admin: 07/25/19 20:46 Dose: 5 mg Lamotrigine (Lamictal Tab(*)) 150 mg PO BID [facility] Last Admin: 07/26/19 09:41 Dose: 150 mg Rivaroxaban (Xarelto(*)) 20 mg PO 2100 [facility] Last Admin: 07/25/19 20:47 Dose: 20 mg Vital Signs - 8 hr 07/26/19 07/26/19 07/26/19 08:07 09:15 09:16 Temperature 98.6 F Pulse Rate 111 89 126 Respiratory 20 Rate Blood Pressure 112/78 112/68 115/72 (mmHg) O2 Sat by Pulse 98 Oximetry 07/26/19 11:37 Temperature 98.5 F Pulse Rate 95 Respiratory 20 Rate Blood Pressure 108/64 (mmHg) O2 Sat by Pulse 98 Oximetry Oxygen Devices in Use Now: None Exam: Patient is sitting on a bed with no acute distress HEENT: Normocephalic. Slight tenderness on occipital region Lungs: Clear with no added sound Heart: HR is 114. S1/S2 heard with no murmur. Abdomen: Soft, nondistended and nontender. normal BS heard Extremities: Mild swelling on left leg with no tenderness Neuro: Alert, conscious and oriented Result Diagrams: 07/25/19 10:31 07/25/19 10:30 Assess/Plan/Problems-Billing Assessment: 39 y/o F with h/o PE/DVT(on xarelto), Factor V leiden(heterozygous), Bipolar disorder, Migraine presented with syncope associated with nausea, lightheadedness and whoozy feeling. Found to be tachycardic. DD-vasovagal, recurrent PE, orthostatic - Patient Problems (1) Syncope Current Visit: Yes Status: Acute Code(s): R55 - SYNCOPE AND COLLAPSE SNOMED Code(s): 527931302 Comment: - History more suggestive of vasovagal or orthostatic; had prodorme syndrome - Still need to rule out PE given her tachycardia which was not present during presentation; A/C to her she had similar sx when she had PE with no chest pain and SOB - Venous doppler on 07/20 showed thrombus on left iliac and peroneal vein. - on xarelto 20 mg daily - She is following with Dr. schneider. There was also suspicion of May-Thurner syndrome. - we will order CTA chest/abd/pelvis - (2) Bipolar disease, chronic Current Visit: Yes Status: Acute Code(s): F31.9 - BIPOLAR DISORDER, UNSPECIFIED SNOMED Code(s): 91430440 Comment: Continue lamotrigine, aripriprazole. (3) Asthma Current Visit: Yes Status: Acute Code(s): J45.909 - UNSPECIFIED ASTHMA, UNCOMPLICATED SNOMED Code(s): 932598480 Comment: mild, does not use MDI's often. (4) Migraine Current Visit: Yes Status: Acute Code(s): G43.909 - MIGRAINE, UNSP, NOT INTRACTABLE, WITHOUT STATUS MIGRAINOSUS SNOMED Code(s): 13044165 Comment: Patient only take APAP for her migraines. (5) DVT prophylaxis Current Visit: Yes Status: Acute Code(s): Z29.9 - ENCOUNTER FOR PROPHYLACTIC MEASURES, UNSPECIFIED SNOMED Code(s): 395868833 Comment: on xarelto (6) Full code status Current Visit: Yes Status: Acute Code(s): Z78.9 - OTHER SPECIFIED HEALTH STATUS SNOMED Code(s): 569341831 Status and Disposition: observation awaitng cta Attending: Patrick Nelson Attestation Documenting Resident: Nadia Cool Supervising Physician: Good Nelson Attestation: This service has been performed in part by a resident under the direction of a teaching physician.I, Good Nelson, performed the service, or was physically present during the critical, or miller portions of the service, furnished by the resident. I participated in the management of the patient.
[2019-07-26] MEDS ORDERED: NS 0.9% 500 ML* 500 ML IV ONE (15:46)
[2019-07-26] MEDS ORDERED: NS 0.9% 1000 ML** 1,000 ML IV ONE (18:58)
[2019-07-26] MEDS: ARIPiprazole TAB* 5 MG PO SCH (20:47)
[2019-07-26] MEDS: Rivaroxaban TAB(*) 20 MG TAB PO SCH (20:48)
[2019-07-27 07:53] LABS: BUN/Creatinine Ratio 11.3 (8-20); Calcium 8.2 mg/dL (8.6-10.3); EGFR African American 96.1 (>60); EGFR Non-African American 79.4 (>60); Potassium 4.2 mmol/L (3.5-5.0)
[2019-07-27] MEDS: Acetaminophen TAB* 325 MG PO PRN (08:28)
[2019-07-27 09:26] VITALS: BP 121/65
[2019-07-27] MEDS: lamoTRIgine TAB(*) 100 MG PO SCH (09:47)
--- NOTE | 2019-07-27 22:42 | DS ---
CC: Joie Taylor NP; Dr. Fisher DISCHARGE SUMMARY: DATE OF ADMISSION: 07/25/19 DATE OF DISCHARGE: 07/27/19 PRIMARY CARE PROVIDER: Joie Taylor NP, in [place]. PRIMARY DIAGNOSIS: Syncope. SECONDARY DIAGNOSES: 1. Sinus tachycardia. 2. History of deep venous thrombosis with pulmonary embolism in April of this year. 3. Factor V Leiden, heterozygous. 4. Bipolar disorder. 5. Migraine headaches. 6. Asthma. 7. Polycystic ovary disease. 8. Strong family history of thromboembolism. MEDICATIONS ON DISCHARGE: 1. Abilify 5 mg p.o. q. day. 2. Lamotrigine 150 mg p.o. b.i.d. 3. Xarelto 20 mg p.o. q. day. 4. Acetaminophen 650 mg p.o. q.4 hours p.r.n. pain. CONSULTATIONS: None. PROCEDURES: None. HOSPITAL COURSE: Please see admission history and physical for full details of this medical admissio n. The patient briefly had 2 episodes of syncope overnight just prior to admission with some prodrom e of dizziness. The patient was initially assessed to have normal CBC, normal coagulation studies, m agnesium of 1.8, normal electrolytes otherwise, troponin of 0.00, TSH 1.5. The patient was observed on telemetry without any significant arrhythmias other than sinus tachycardia. Tachycardia went up to 130 beats per minute and the patient was ambulatory and this was associated with some feeling of lig htheadedness. She had no further syncope in the hospital. Repeat echocardiogram was not obtained be cause the patient had transthoracic echocardiogram on 05/07/19, which showed ejection fraction of 55% to 60%. Sequential diagnosis of her syncope would include generally vasovagal episodes, seizures, h eart arrhythmias, orthostatic hypotension due to psychiatric medications. The differential of her ta chycardia would include anxiety, psychiatric medication side effects, hypovolemia, anemia, pain. She did not have any pain. We attempted to treat hypovolemia with a saline infusion without any change in her heart rate. The patient does not have any specific arrhythmias that would cause syncope. The patient had pulmonary embolism in April and presented without chest pain or shortness of breath, b ut mainly tachycardia and dizziness. The patient had a CT angiogram of the chest, abdomen, and pelvi s on 07/26/19. This did not demonstrate any pulmonary emboli, but did show a flattening of the left common iliac vein at the confluence with IVC, which may be due to vascular compression from the right common iliac artery. Other labs, studies, and x-rays of interest: Cervical spine CT due to head trauma showed some mild o steoarthritis and disk disease. Head CT was negative for infarct or bleed or cerebral contusion. On the day of discharge, the patient was ambulatory with mild symptoms of dizziness and tachycardia t o around 110. She was ambulatory and eating well and ready to go home. DISPOSITION: To home. FOLLOWUP: Should be with primary care within 1 week. The patient should also see Dr. Fisher for inv estigation of possible May-Thurner syndrome. Further investigations could include repeat echocardiog toro and EEG to investigate other causes of syncope and rule out tachycardia-induced cardiomyopathy. STATUS: Observation. CONDITION: Stable. DIET: Regular. ACTIVITY: As tolerated. [id number]/[facility] #: [id number]
== END 2019-07-27 12:51 | disposition home or self-care (01) ==
LOC: ED 09:25 → MEDTELE 13:10
PROVIDERS: ADMIT Internal Medicine; ATTEND Internal Medicine
DX: R55 Syncope and collapse (principal); R00.0 Tachycardia, unspecified; Z86.718 Personal history of other venous thrombosis and embolism; Z86.711 Personal history of pulmonary embolism; D68.51 Activated protein C resistance; G43.909 Migraine, unspecified, not intractable, without status migrainosus; J45.909 Unspecified asthma, uncomplicated; E28.2 Polycystic ovarian syndrome; F31.9 Bipolar disorder, unspecified; Z83.2 Family history of diseases of the blood and blood-forming organs and certain disorders involving the immune mechanism; Z79.01 Long term (current) use of anticoagulants; Z79.899 Other long term (current) drug therapy
CPT/HCPCS: 36415; 70450; 71275; 72125; 74177; 80048; 80053; 81003; 83605; 83735; 84443; 84484; 84702; 85025; 85610; 93005; 96361; 96365; 99284; A9270-GY; G0378; J3475; Q9967

== ENCOUNTER → 2019-08-12 07:04 | Day surgery (SDC) | payer OTHER ==
[~2019-08-12 07:04] MED LIST: Acetaminophen TAB* 325 MG ONE; HYDROmorphone INJ1* 1 MG/ML SYRINGE ONE; Heparin 2 UNITS/ML IVPREMIX* 1,000 ML IV ONE; Heparin 2 UNITS/ML IVPREMIX* 2,000 ML IV ONE; Heparin(*) 1000 UNIT/ML 10 ML VIAL CATH LAB IV ONE; Iohexol 350 (CONTRAST) 200 ML MDV IV ONE; Lidocaine 1% INJ* 10 MG/ML 30 ML SDV ONE; Midazolam* 1 MG/ML 5 ML VIAL (5 MG) ONE; NS 0.9% IVPB ONE; PROCHLORPERAZINE INJ 5 MG/ML 2 ML VIAL ONE; SODIUM BICARBONATE IVPB ONE; fentaNYL* 50 MCG/ML 2 ML VIAL (100 MCG VIAL) ONE
[2019-08-12 07:54] LABS: ABS Eosinophils 0.1 10^3/ul (0-0.6); ABS Lymphocytes 2.4 10^3/ul (1.0-4.8); ABS Monocytes 0.4 10^3/ul (0-0.8); ABS Neutrophils 2.9 10^3/ul (1.5-7.7); Eosinophil % 0.9 %; Hematocrit 40 % (35-47); Hemoglobin 13.6 g/dL (12.0-16.0); Lymphocyte % 41.1 %; Mean Corpuscular HGB Conc 34 g/dL (31-36); Mean Corpuscular Hemoglobin 30 pg (27-31); Mean Corpuscular Volume 87 fL (80-97); Mean Platelet Volume 6.8 fL (7.4-10.4); Platelet Count 325 10^3/uL (150-450); Red Blood Count 4.61 10^6 /uL (3.70-4.87); Red Cell Distribution Width 14 % (10-15); White Blood Count 5.8 10^3/uL (3.5-10.8)
[2019-08-12 08:03] LABS: INR 1.17 (0.82-1.09)
[2019-08-12 08:10] LABS: Anion Gap 6 mmol/L (2-11); BUN/Creatinine Ratio 10.2 (8-20); Blood Urea Nitrogen 9 mg/dL (6-24); CO2 Carbon Dioxide 27 mmol/L (22-32); Calcium 8.9 mg/dL (8.6-10.3); Chloride 105 mmol/L (101-111); EGFR African American 86.1 (>60); EGFR Non-African American 71.2 (>60); Glucose 90 mg/dL (70-100); Potassium 3.8 mmol/L (3.5-5.0); Sodium 138 mmol/L (135-145)
[2019-08-12 08:17] LABS: HCG Pregnancy < 0.60 mIU/mL
--- NOTE | 2019-08-12 15:20 | PN ---
Progress Note - Progress Note Date of Service: 08/12/19 SOAP: Subjective: Patient with complaints of 2/10 at left groin venotomy site and low back pain. Also with complaints of headache, similar to previous headaches. Requesting Tylenol. Had nausea, but controlled with compazine. Denies CP or SOB. Objective: Selected Entries 08/12/19 14:34 Pulse Rate 85 Heart Rate 91 Respiratory 17 Rate Blood Pressure 114/68 (mmHg) Blood Pressure 80 Mean O2 Sat by Pulse 97 Oximetry NAD, AAO x 3 EOMI, NUVIA Left groin is soft, minimally tender with palpation. 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 The plan was stent the left common iliac vein, but the vein was smaller than anticipated and the appropriate stents in stock were too big to deploy. Therefore venoplasty only was performed. Plan: 1. The patient's low back and headache is similar to symptoms she has had in the past. Likely the back pain is being exacerbated by bedrest. 2. Low grade pain in the left groin and pelvis is due to revascularization and venoplasty of the occluded, scarred left common iliac vein. I expect this pain will subside in the coming days. 3. I do not expect the venoplasty alone will provide durable patency of the left common iliac vein. In the near future the plan is to return for repeat venogram after acquiring self expanding stents appropriate for Britany's iliac veins. 4. She was advised to continue wearing a left leg compression stocking during awake hours and continue her anticoagulation therapy. Likely this will be lifelong considering her Factor V Leiden mutation and that she has venous scarring in the pelvis and left leg with early signs/symptoms of chronic thrombotic syndrome.
[2019-08-12 15:41] VITALS: BP 110/61
== END | disposition home or self-care (01) ==
LOC: CHICATH 07:04
PROVIDERS: ATTEND Radiology Diagnostic Radiology
DX: I87.002 Postthrombotic syndrome without complications of left lower extremity (principal); Z87.891 Personal history of nicotine dependence; R22.42 Localized swelling, mass and lump, left lower limb; N92.0 Excessive and frequent menstruation with regular cycle; D68.51 Activated protein C resistance
CPT/HCPCS: 36415; 37252; 76937; 80048; 84702; 85025; 85347; 85610; 99156; 99157; A9270-GY; C1725; C1753; C1769; C1887; C1894; J0780; J1170; J1644; J2250; J3010